=== PATIENT | male | born 1965 | race African-American/Black ===

== ENCOUNTER 2020-02-29 12:28 | Emergency (ER) | payer SELFPAY ==
--- NOTE | ~2020-02-29 | XR_ITS ---
XR chest 2V 02/29/2020 13:10 Indication: Productive cough for 3 days Procedure: 2 view chest Comparison: No prior studies for comparison. Findings: Right basilar airspace disease. Borderline heart size. No pleural effusion, edema or pneumo thorax. Impression: 1: Right basilar airspace disease may represent atelectasis or developing pneumonia. Reviewed, dictated and finalized at location A. Impression: 1: Right basilar airspace disease may represent atelectasis or developing pneum onia.
[2020-02-29 12:42] VITALS: BP 151/97; PULSE 94; RESP 16; TEMP 37.3; O2SAT 98
--- NOTE | 2020-02-29 12:57 | ED.URI ---
HPI - URI/Sore Throat General Chief Complaint: Upper Respiratory Infection Stated Complaint: diarrhea/cough Time Seen by Provider: 02/29/20 12:45 Source: patient and RN notes reviewed Mode of arrival: ambulatory Limitations: no limitations History of Present Illness HPI Narrative: Patient presents today with a 3-day history of productive cough with green sputum, decreased appetite, fatigue. He also reports 3 episodes of diarrhea over the past 3 days. Denies blood or mucus in the stool. Denies shortness of breath, abdominal pain, or fever. He does report some rhinorrhea that started today, but only lasted a short period of time. He has been taking Robitussin with mild relief. MD elicited complaint: cough Related Data Home Medications Medication Instructions Recorded Confirmed amlodipine [Norvasc] 10 mg PO DAILY 02/29/20 02/29/20 atorvastatin [Lipitor] 80 mg PO DAILY 02/29/20 02/29/20 doxazosin [Cardura] 4 mg PO BID 02/29/20 02/29/20 gabapentin [Neurontin] 300 mg PO TID 02/29/20 02/29/20 losartan [Cozaar] 100 mg PO DAILY 02/29/20 02/29/20 metformin [Glucophage XR] 750 mg PO BID 02/29/20 02/29/20 Allergies Allergy/AdvReac Type Severity Reaction Status Date / Time No Known Allergies Allergy Verified 02/29/20 12:49 Review of Systems Review of Systems: Narrative: CONSTITUTIONAL: Denies body aches, fever, chills, or sweats.+ Fatigue, decreased appetite EYES: Denies visual changes, redness, or discharge. ENT: Denies congestion, sore throat, or otalgia.+ Rhinorrhea CARDIOVASCULAR: Denies chest pain, palpitations, or edema. RESPIRATORY: Denies dyspnea.+ Cough GASTROINTESTINAL: Denies abdominal pain, nausea, vomiting. + Diarrhea GENITOURINARY: Denies dysuria or hematuria. SKIN: Denies rash, itching, or wounds. MUSCULOSKELETAL: Denies back pain, joint pain, or myalgia. NEUROLOGIC: Denies headache, numbness, tingling, or weakness. PSYCH: Denies depression or anxiety. [facility] Past Medical History Medical History (Updated 02/29/20 @ 13:29 by Anuradha Kamara, MEDICAL OFFICE ASSISTANT, ) Diabetes Hypercholesterolemia Hypertension Social History Social History (Updated 02/29/20 @ 12:59 by Anuradha Kamara, [facility], ) Smoking status: Never smoker Gender identity (if verbalized by the patient): Male Comments At time of signature, I have reviewed and agree with nursing past medical, surgical, social and family history unless otherwise noted. Please see nursing chart for further information. There is no relevant family history pertinent to the presenting complaint Exam Narrative: Exam Narrative: GENERAL: Well-appearing, well-nourished, and in no acute distress. HEAD: Normocephalic, atraumatic. EYES: EOMI. No redness or drainage. Conjunctivae normal. ENT: Mucous membranes pink and moist. Nares mildly congested. No rhinorrhea. TMs normal bilaterally. Throat normal. Uvula midline. NECK: Normal AROM. Supple. No lymphadenopathy. CHEST: No respiratory distress. Slightly diminished in the right lower lobe. Deep breath elicits coughing episodes. HEART: Regular rate and rhythm. No murmur appreciated. Normal peripheral pulses. ABDOMEN: Soft, nontender, nondistended, normal active bowel sounds. MUSCULOSKELETAL: No bony tenderness. EXTREMITIES: Normal range of motion. No edema. SKIN: Warm, dry, no rash. Capillary refill normal. Normal skin turgor. NEURO: No focal deficits. Alert and oriented x3. Gait steady. PSYCH: Normal affect. No signs of depression or anxiety. Course Vital Signs Vital signs: Vital Signs Temperature 99.2 F 02/29/20 12:42 Pulse Rate 94 02/29/20 12:42 Respiratory Rate 16 02/29/20 12:42 Blood Pressure 151/97 H 02/29/20 12:42 Pulse Oximetry 98 02/29/20 12:42 Temperature 99.2 F 02/29/20 12:42 Pulse Rate 94 02/29/20 12:42 Respiratory Rate 16 02/29/20 12:42 Blood Pressure 151/97 H 02/29/20 12:42 Pulse Oximetry 98 02/29/20 12:42 Reviewed. Pt has been instructed to follow up wit
== END 2020-02-29 13:33 | disposition home or self-care (01) ==
PROVIDERS: Emergency Provider Nurse Practitioner; PCP Physician Assistant
DX: J18.9 Pneumonia, unspecified organism (principal); E11.9 Type 2 diabetes mellitus without complications; E78.00 Pure hypercholesterolemia, unspecified; I10 Essential (primary) hypertension; Z79.84 Long term (current) use of oral hypoglycemic drugs
CPT/HCPCS: 71046; 99213; G0463

== ENCOUNTER 2021-04-24 11:56 | Emergency (ER) | payer OTHER, SELFPAY ==
[2021-04-24 12:09] VITALS: BP 188/91; PULSE 73; RESP 16; TEMP 36.1; O2SAT 100
--- NOTE | 2021-04-24 12:22 | ED.BACK ---
HPI - Back Pain/Injury General Chief Complaint: Back Pain/Injury Stated Complaint: back pain Source: patient and RN notes reviewed Limitations: no limitations History of Present Illness HPI Narrative: The patient, who is a manual farm laborer, presents with recurrent back pain. Patient states he had a prior history of right-sided low back pain, that was treated with physical therapy after scan several years ago. He complains of gradual onset of similar pain 5 days ago after digging a ditch. Symptoms are mild, radiate distally on the posterior leg and to upper foot. No fever, abdominal pain, numbness/weakness, bowel?bladder symptoms, hematuria. Blood pressure is elevated and patient comments he has not taken his amlodipine, as he is out of the medication Advised to go to higher-level care facility to higher level testing if not improved , because for early diagnosis of serious problems [kidney stone, vascular, atypical appendicitis, etc], clear specific symptoms do not develope until later. Do not feel it is an acute GI, or event has it is similar to prior episode, and reproducible tender externally. Patient confirms he has had physician visits and labs this year and will follow up with PMD Related Data Home Medications Medication Instructions Recorded Confirmed amlodipine [Norvasc] 10 mg PO DAILY 02/29/20 02/29/20 atorvastatin [Lipitor] 80 mg PO DAILY 02/29/20 02/29/20 doxazosin [Cardura] 4 mg PO BID 02/29/20 02/29/20 metformin [Glucophage XR] 750 mg PO BID 02/29/20 02/29/20 aspirin PO 04/24/21 hydrochlorothiazide 04/24/21 Allergies Allergy/AdvReac Type Severity Reaction Status Date / Time No Known Allergies Allergy Verified 02/29/20 12:49 Review of Systems Review of Systems: Narrative: General/Constitutional: No weight loss,fever Eyes: N0: Redness,discharge Ears/Nose/Throat: No: Epistaxis,ear discharge Respiratory: Denies: Hemoptysis Gastrointestinal: No Vomiting, Bleeding-rectal Skin: No Lumps, eruption Neurologic: No Focal Weakness,Sz Hematologic: Denies: Petechiae/Purpura Psychiatric: No: Suicida ideationl All Other Systems: Reviewed and Negative [facility] Past Medical History Medical History (Updated 04/24/21 @ 13:00 by Mendoza Madrigal MD) Diabetes Hypercholesterolemia Hypertension Social History Social History (Updated 02/29/20 @ 12:59 by Anuradha Kamara, [facility], ) Smoking status: Never smoker Gender identity (if verbalized by the patient): Male Comments At time of signature, agree with nursing past medical, surgical, social and family history. There is no relevant family history pertinent to the presenting complaint Exam Narrative: Exam Narrative: General Appearance: Well appearing, Well nourished, Conjunctiva clear Ears: External ear normal Nose: Normal nose Mouth/Throat: Normal appearing, Normal lips, Supple Respiratory: Airway patent Abdomen: Soft, NT no masses, good pulses Musculoskeletal: Normal strength -no footdrop, 5/5 : EH L-FHL, gastroc-AT, no saddle weakness Spine/Back: Paraspinal muscle tender -with mild decreased range of motion; right sciatic notch and posterior superior iliac crest Skin: Normal color Neurological: A&O x3, CN II-XII intact, Normal reflexes (symmetric, 2+ KJ, trace AJ) Psychiatric: Normal mood Course Vital Signs Vital signs: Vital Signs Temperature 96.9 F L 04/24/21 12:09 Pulse Rate 73 04/24/21 12:09 Respiratory Rate 16 04/24/21 12:09 Blood Pressure 188/91 H 04/24/21 12:09 Pulse Oximetry 100 04/24/21 12:09 Temperature 96.9 F L 04/24/21 12:09 Pulse Rate 73 04/24/21 12:09 Respiratory Rate 16 04/24/21 12:09 Blood Pressure 188/91 H 04/24/21 12:09 Pulse Oximetry 100 04/24/21 12:09 Discharge Plan Discharge Clinical Impression: Labile hypertension Sciatica Qualifiers: Laterality: right Qualified Code(s): M54.31 - Sciatica, right side Patient Disposition: Home, Self-Care Condition: Stable
== END 2021-04-24 12:38 | disposition home or self-care (01) ==
PROVIDERS: Emergency Provider Emergency Medicine
DX: M54.31 Sciatica, right side (principal); R03.0 Elevated blood-pressure reading, without diagnosis of hypertension; E11.9 Type 2 diabetes mellitus without complications; E78.00 Pure hypercholesterolemia, unspecified
CPT/HCPCS: 99213; G0463

== ENCOUNTER 2021-09-02 14:50 | Emergency (ER) | payer OTHER, SELFPAY ==
[2021-09-02 15:00] VITALS: BP 161/104; PULSE 83; RESP 16; TEMP 37.1; O2SAT 99
[2021-09-02 15:05] VITALS: BP 161/104; PULSE 83; RESP 16; TEMP 37.1; O2SAT 99
--- NOTE | 2021-09-02 16:00 | ED.GENADULT ---
HPI - General Adult General Chief complaint: Unspecified Stated complaint: Hicups Time Seen by Provider: 09/02/21 15:52 Source: patient and RN notes reviewed Mode of arrival: ambulatory Limitations: no limitations History of Present Illness HPI narrative: Patient presents today with a 2-day history of hiccups. He has tried multiple home remedies to include eating hawa, drinking cold water and herbal tea, and eating hot foods. He denies any history of GERD but does say he has a burning in his throat currently. Upon exam, he states he has not had any hiccups for 15 minutes. complaint: Hiccups Related Data Home Medications Medication Instructions Recorded Confirmed amlodipine [Norvasc] 10 mg PO DAILY 02/29/20 09/02/21 atorvastatin [Lipitor] 80 mg PO DAILY 02/29/20 09/02/21 doxazosin [Cardura] 4 mg PO BID 02/29/20 09/02/21 metformin [Glucophage XR] 750 mg PO BID 02/29/20 09/02/21 aspirin 81 mg PO DAILY 04/24/21 09/02/21 hydrochlorothiazide 50 mg PO DAILY 04/24/21 09/02/21 cetirizine 10 mg PO DAILY 09/02/21 09/02/21 Allergies Allergy/AdvReac Type Severity Reaction Status Date / Time No Known Allergies Allergy Verified 09/02/21 14:56 Review of Systems Review of Systems: CONSTITUTIONAL: Denies body aches, fever, chills, or sweats. EYES: Denies visual changes, redness, or discharge. ENT: Denies rhinorrhea, congestion, sore throat, or otalgia. CARDIOVASCULAR: Denies chest pain, palpitations, or edema. RESPIRATORY: Denies cough or dyspnea. GASTROINTESTINAL: Denies abdominal pain, nausea, vomiting, or diarrhea.+ Hiccups GENITOURINARY: Denies dysuria or hematuria. SKIN: Denies rash, itching, or wounds. MUSCULOSKELETAL: Denies back pain, joint pain, or myalgia. NEUROLOGIC: Denies headache, numbness, tingling, or weakness. PSYCH: Denies depression or anxiety. [facility] Past Medical History Medical History Diabetes Hypercholesterolemia Hypertension Social History Social History Smoking status: Never smoker Gender identity (if verbalized by the patient): Male Comments At time of signature, I have reviewed and agree with nursing past medical, surgical, social and family history unless otherwise noted. Please see nursing chart for further information. There is no relevant family history pertinent to the presenting complaint Exam Narrative: GENERAL: Well-appearing, well-nourished, and in no acute distress. HEAD: Normocephalic, atraumatic. EYES: EOMI. No redness or drainage. Conjunctivae normal. ENT: Mucous membranes pink and moist. NECK: Normal AROM. Supple. No lymphadenopathy. CHEST: No respiratory distress. EXTREMITIES: Normal range of motion. No edema. SKIN: Warm, dry, no rash. Capillary refill normal. Normal skin turgor. NEURO: No focal deficits. Alert and oriented x3. Gait steady. PSYCH: Normal affect. No signs of depression or anxiety. Course Vital Signs Vital signs: Vital Signs Temperature 98.8 F 09/02/21 15:00 Pulse Rate 83 09/02/21 15:00 Respiratory Rate 16 09/02/21 15:00 Blood Pressure 161/104 H 09/02/21 15:00 Pulse Oximetry 99 09/02/21 15:00 Temperature 98.8 F 09/02/21 15:05 Pulse Rate 83 09/02/21 15:05 Respiratory Rate 16 09/02/21 15:05 Blood Pressure 161/104 H 09/02/21 15:05 Pulse Oximetry 99 09/02/21 15:05 Reviewed. Pt has been instructed to follow up with his PCP regarding his elevated blood pressure today. Medical Decision Making Differential Diagnosis Differential Diagnosis: Hiccups Vital Signs Vital Signs: Vital Signs Temperature 98.8 F 09/02/21 15:00 Pulse Rate 83 09/02/21 15:00 Respiratory Rate 16 09/02/21 15:00 Blood Pressure 161/104 H 09/02/21 15:00 Pulse Oximetry 99 09/02/21 15:00 Temperature 98.8 F 09/02/21 15:05 Pulse Rate 83 09/02/21 15:05 Respiratory Rate 16 09/02/21 15:05 Blo
== END 2021-09-02 16:10 | disposition home or self-care (01) ==
PROVIDERS: Emergency Provider Nurse Practitioner
DX: R06.6 Hiccough (principal); E11.9 Type 2 diabetes mellitus without complications; E78.00 Pure hypercholesterolemia, unspecified; I10 Essential (primary) hypertension
CPT/HCPCS: 99213; G0463

== ENCOUNTER 2022-06-03 16:53 | Emergency (ER) | payer OTHER, SELFPAY ==
[2022-06-03 17:00] VITALS: BP 153/95; PULSE 104; RESP 16; TEMP 36.5; O2SAT 100
--- NOTE | 2022-06-03 17:08 | ED.GENADULT ---
HPI - General Adult General Chief complaint: Nausea/Vomiting/Diarrhea Stated complaint: Dizzy, diarhea Time Seen by Provider: 06/03/22 17:08 Source: patient and RN notes reviewed Mode of arrival: ambulatory Limitations: no limitations History of Present Illness HPI narrative: 57-year-old male presents to the [facility] with diarrhea, blurry vision, dizziness since changing his metformin dose a week ago. States that he tried calling his primary care provider, was told to go to the [facility] or emergency room. Patient appears nontoxic. Patient states that his sugars have been running in the 300s and unable to get him down. Patient also states that his blood pressure has been all over the place. States that he was driving here when his vision became extremely blurry Related Data Home Medications Medication Instructions Recorded Confirmed amlodipine 10 mg tablet (Norvasc) 10 mg PO DAILY 02/29/20 06/03/22 atorvastatin 80 mg tablet (Lipitor) 80 mg PO DAILY 02/29/20 06/03/22 doxazosin 4 mg tablet (Cardura) 4 mg PO BID 02/29/20 06/03/22 metformin 750 mg tablet,extended 750 mg PO BID 02/29/20 06/03/22 release 24 hr (Glucophage XR) aspirin 81 mg tablet 81 mg PO DAILY 04/24/21 06/03/22 hydrochlorothiazide 50 mg PO DAILY 04/24/21 06/03/22 cetirizine 10 mg tablet 10 mg PO DAILY 09/02/21 06/03/22 Allergies Allergy/AdvReac Type Severity Reaction Status Date / Time No Known Allergies Allergy Verified 06/03/22 16:54 Review of Systems Review of Systems: All systems reviewed & are unremarkable except as noted in HPI and below Constitutional: Constitutional: Reports no additional constitutional complaints, Denies chills and Denies fever(s) Eyes: Eyes: Reports no additional eye complaints ENT: Reports system reviewed and no additional complaints, except as documented Cardiovascular: Cardiovascular: Reports no additional cardiovascular complaints Respiratory: Respiratory: Reports no additional respiratory complaints Gastrointestinal: Gastrointestinal: Reports as per HPI and Reports diarrhea Musculoskeletal: Musculoskeletal: Reports no additional musculoskeletal complaints Integumentary/Breasts: Skin/Breast: Reports system reviewed and no additional complaints, except as docu Neurologic: Reports as per HPI, Reports confusion, Reports dizziness (Blurry vision), Denies syncope and Reports weakness Psychiatric: Psychiatric: Reports no additional psychiatric complaints Allergic/Immunologic: Allergic/Immunologic: Reports no additional allergic/immunologic complaints [facility] Past Medical History Medical History Diabetes Hypercholesterolemia Hypertension Social History Social History Smoking status: Never smoker Gender identity (if verbalized by the patient): Male Comments At the time of my signature, I reviewed and agree with the nursing past medical, surgical, social, and family history. There is no relevant family history pertinent to the patient complaint. Exam Const: General: healthy appearing, no acute distress and alert Nutritional Appearance: well nourished Orientation/consciousness: patient oriented x3 Limitations: no limitations HENMT: Head: normal to inspection Ears: external ears normal Eyes: General: appearance normal, both eyes and all related structures Conjunctivae: conjunctivae normal Pupils: Equal, round and reactive pupils present Neck: Neck: normal visual inspection, no lymphadenopathy and no meningeal signs Chest: Chest palpation & inspection: normal inspection of the chest Resp: Effort & Inspection: normal respiratory effort and no use of accessory muscles Auscultation: clear to auscultation bilaterally, no crackles, no rales, no rhonchi and no wheezes Cardio: Rate: regular rate Rhythm: regular rhythm GI: GI Palp: Yes Soft to palpation and No Tenderness to palpation present (
[2022-06-03 17:23] LABS: Glucose Point of Care 318 mg/dl (65-105)
--- NOTE | 2022-06-03 17:52 | ECG_ITS ---
Measurements Intervals [place] Rate: 97 P: 63 SC: 207 QRS: -3 QRSD: 87 T: 13 QT: 318 QTc: 405 Interpretive Statements SINUS RHYTHM POSSIBLE LEFT ATRIAL ENLARGEMENT [-0.1mV P WAVE IN V1/V2] NONSPECIFIC T-WAVE ABNORMALITY NO PREVIOUS ECG AVAILABLE FOR COMPARISON Electronically Signed On 06-04-2022 18:06:51 CDT by Josie Bennett M.D.
== END 2022-06-03 17:26 | disposition short-term general hospital (02) ==
PROVIDERS: Emergency Provider Nurse Practitioner
DX: E11.65 Type 2 diabetes mellitus with hyperglycemia (principal); R42 Dizziness and giddiness; H53.8 Other visual disturbances; E78.00 Pure hypercholesterolemia, unspecified; I10 Essential (primary) hypertension
CPT/HCPCS: 82948; 93005; 99215; G0463

== ENCOUNTER 2023-12-23 10:45 | Emergency (ER) | payer OTHER, SELFPAY ==
[2023-12-23 11:02] VITALS: BP 170/116; PULSE 98; RESP 16; TEMP 37.2; O2SAT 97
--- NOTE | 2023-12-23 11:37 | ED.GENADULT ---
HPI - General Adult General Chief complaint: Back Pain/Injury Stated complaint: lower back pain,cough Source: patient, RN notes reviewed and old records reviewed Mode of arrival: ambulatory Limitations: no limitations History of Present Illness HPI narrative: 58 year old male presents to [facility] care with complaints of needing medication refills of all his medications has doctors appointment on the 04 of January states they wouldn't refill his medication till seen by doctor. Patient is diabetic and on medications for hypertension with blood pressure elevated today and blood sugar today in clinic per finger stick noted to be 263. Patient also reports that he has lower back pain for the past 10 days with no injury, has been taking Aleve for his pain, denies any difficulty with bowel or bladder function,denies any radiation of pain to his legs or any tingling or numbness. Patient also states complaints of cough and runny nose for the past 8 days, taking OTC cough medication HBP. Request tested for COVID, denies any known fevers. MD complaint: back pain,cough and runny nose and needs medication refills. Onset (ago): day(s) (10 days of back pain,8 days of cough and runny nose) Severity scale (1-10): 8 Quality: aching Exacerbating factors: other (positiion changes) Treatments prior to arrival: NSAID and other (cough medication HBP) Related Data Home Medications Medication Instructions Recorded Confirmed amlodipine 10 mg tablet (Norvasc) 10 mg PO DAILY 02/29/20 12/23/23 atorvastatin 80 mg tablet (Lipitor) 80 mg PO DAILY 02/29/20 12/23/23 doxazosin 4 mg tablet (Cardura) 4 mg PO BID 02/29/20 12/23/23 metformin 750 mg tablet,extended 750 mg PO BID 02/29/20 12/23/23 release 24 hr (Glucophage XR) aspirin 81 mg tablet 81 mg PO DAILY 04/24/21 12/23/23 hydrochlorothiazide 50 mg PO DAILY 04/24/21 12/23/23 Allergies Allergy/AdvReac Type Severity Reaction Status Date / Time No Known Allergies Allergy Verified 12/23/23 11:10 Review of Systems Review of Systems: CONSTITUTIONAL: Denies fever, chills, or sweats. EYES: Denies visual changes, redness, or discharge. ENT:Reports rhinorrhea, congestion, no sore throat, or otalgia. CARDIOVASCULAR: Denies chest pain, palpitations, or edema. RESPIRATORY: Reports cough denies any dyspnea. GASTROINTESTINAL: Denies abdominal pain, nausea, vomiting, or diarrhea. GENITOURINARY: Denies dysuria or hematuria. SKIN: Denies rash or itching. MUSCULOSKELETAL: Reports lumbar back pain, joint pain, or myalgia. NEUROLOGIC: Denies headache, numbness, or weakness. PSYCHIATRIC: Denies anxiety or depression. All systems reviewed & are unremarkable except as noted in HPI and below PMFSH Past Medical History Medical History Diabetes Hypercholesterolemia Hypertension Social History Social History Smoking status: Never smoker Gender identity (if verbalized by the patient): Male Comments At time of signature, agree with nursing past medical, surgical, social and family history. There is no relevant family history pertinent to the presenting complaint Exam Narrative: GENERAL: Well-appearing, well-nourished, and in no acute distress. HEAD: Normocephalic, atraumatic. EYES: PERRLA and EOMI. ENT: Nares clear, clear rhinorrhea no epistaxis. Mucous membranes moist.TM's normal, throat pink with no swelling. NECK: Supple.no lymphadenopathy CHEST: Clear to auscultation. No respiratory distress. cough,SAO2 97% on room air HEART: Regular rate and rhythm. No murmur heard. Normal peripheral pulses. ABDOMEN: Soft, nontender, nondistended, normal active bowel sounds. EXTREMITIES: Normal range of motion. No edema.Reports lower back pain with increased pain with position changes, denies any saddle paraesthesia, no difficulty with urination or bowel movement,No radiation of pain to legs, denies any tingling or numbne
[2023-12-23 11:51] LABS: Glucose Point of Care 263 mg/dl (65-105)
== END 2023-12-23 12:12 | disposition home or self-care (01) ==
PROVIDERS: Emergency Provider Registered Nurse
DX: S39.012A Strain of muscle, fascia and tendon of lower back, initial encounter (principal); X58.XXXA Exposure to other specified factors, initial encounter; J06.9 Acute upper respiratory infection, unspecified; Z76.0 Encounter for issue of repeat prescription; Z20.822 Contact with and (suspected) exposure to COVID-19; E11.9 Type 2 diabetes mellitus without complications; Z79.84 Long term (current) use of oral hypoglycemic drugs; E78.00 Pure hypercholesterolemia, unspecified; I10 Essential (primary) hypertension; Z79.82 Long term (current) use of aspirin
CPT/HCPCS: 82948; 87426; 99213; G0463

== ENCOUNTER 2025-07-30 09:43 | Emergency (ER) | payer SELFPAY ==
[2025-07-30 09:52] VITALS: BP 182/110; PULSE 105; RESP 20; TEMP 36.6; O2SAT 100
--- NOTE | 2025-07-30 10:21 | ED.SOB ---
HPI - SOB/Dyspnea General Chief Complaint: Upper Respiratory Infection Stated Complaint: Swollen legs and URI symptoms patient presents to the [facility] with complaints of elevated blood sugars, increasing shortness of breath even at rest, increasing lower leg swelling, cough, and fatigue. Patient noted these symptoms started about 3 weeks ago. Overall they are getting much worse. Patient does report seeing primary care physician 3 months ago did lab work and was started on a new medication losartan noted has been taking this medication. Denies any chest pain, dizziness, heart fluttering. Does not check blood pressures at home. Denies fever, chills, body aches. Also noted some abdominal bloating and decreased bowel movements without pain for the last few days. Related Data Home Medications ?Medication ?Instructions ?Recorded ?Confirmed ?Last Taken ?Type amlodipine 10 mg tablet (Norvasc) 10 mg PO DAILY 02/29/20 12/23/23 09/01/21 History 10 mg atorvastatin 80 mg tablet (Lipitor) 80 mg PO DAILY 02/29/20 12/23/23 09/01/21 History 80 mg doxazosin 4 mg tablet (Cardura) 4 mg PO BID 02/29/20 12/23/23 09/01/21 History 4 mg metformin 750 mg tablet,extended 750 mg PO BID 02/29/20 12/23/23 09/01/21 History release 24 hr (Glucophage XR) 750 mg aspirin 81 mg tablet 81 mg PO DAILY 04/24/21 12/23/23 09/01/21 History 81 mg hydrochlorothiazide 50 mg PO DAILY 04/24/21 12/23/23 09/01/21 History 50 mg Allergies Allergy/AdvReac Type Severity Reaction Status Date / Time No Known Allergies Allergy Verified 07/30/25 09:57 Review of Systems Constitutional: Constitutional: Reports as per HPI, Denies chills, Reports fatigue, Denies fever(s) and Denies weakness Eyes: Eyes: Reports no additional eye complaints ENT: Reports as per HPI, Denies nasal congestion and Denies sore throat Cardiovascular: Cardiovascular: Reports as per HPI, Denies chest pain, Denies rapid heart rate, Denies radiating jaw, neck or arm pain and Denies slow heart rate Respiratory: Respiratory: Reports as per HPI, Denies chest congestion, Reports cough, Reports dyspnea and Denies wheezing Gastrointestinal: Gastrointestinal: Reports as per HPI, Denies abdominal pain, Reports bloating, Denies diarrhea, Denies nausea and Denies vomiting Genitourinary: Genitourinary: Reports no additional male genitourinary complaints Musculoskeletal: Musculoskeletal: Reports as per HPI and Reports joint swelling Integumentary/Breasts: Skin/Breast: Reports as per HPI, Denies erythema, Denies rash and Denies skin ulcer Neurologic: Reports as per HPI, Denies headache(s), Denies numbness and Denies weakness Psychiatric: Psychiatric: Reports no additional psychiatric complaints Endocrine: Endocrine: Reports no additional endocrine complaints Hematologic/Lymphatic: Hematologic/Lymphatic: Reports no additional hematologic/lymphatic complaints Allergic/Immunologic: Allergic/Immunologic: Reports no additional allergic/immunologic complaints [facility] Past Medical History Medical History Diabetes Hypercholesterolemia Hypertension Social History Social History Smoking status: Never smoker Gender identity (if verbalized by the patient): Male Exam Const: General: healthy appearing and no acute distress Nutritional Appearance: well nourished Orientation/consciousness: patient oriented x3 Limitations: no limitations Neck: Neck: normal visual inspection and no lymphadenopathy Resp: Effort & Inspection: normal respiratory effort Auscultation: crackles (bases ) bilateral and diminished lung sounds Cardio: Rate: regular rate Rhythm: regular rhythm Heart sounds: no murmurs GI: Inspection: non-distended GI Palp: Yes Soft to palpation, No Tenderness to palpation present (GI), No Guarding due to palpation present (GI), No Rigid due to palpation and No Rebound tenderness present Auscultation: normal bowel sounds Skin: General skin exam: normal color Rashes: no rashes Wounds: no wounds Neuro: General: patient oriented x3 and moves all extremities Cranial nerves: Yes Nystagmus not present Speech: normal speech Gait exam (Neuro): Normal gait present Extrem: General: edema (2+ pitting- lower legs, ankles, feet ) bilateral Other: No erythema or wounds noted to bilateral lower legs Psych: Mental Status: mental status grossly normal Affect: normal affect Attitude: cooperative Course Course Level of Care: Express Care Visit Vital Signs Vital signs: Vital Signs Temperature 97.8 F 07/30/25 09:52 Pulse Rate 105 H 07/30/25 09:52 Respiratory Rate 20 07/30/25 09:52 Blood Pressure 182/110 H 07/30/25 09:52 Pulse Oximetry 100 07/30/25 09:52 Oxygen Delivery Room Air 07/30/25 09:52 Temperature 97.8 F 07/30/25 09:52 Pulse Rate 105 H 07/30/25 09:52 Respiratory Rate 20 07/30/25 09:52 Blood Pressure 182/110 H 07/30/25 09:52 Pulse Oximetry 100 07/30/25 09:52 Oxygen Delivery Room Air 07/30/25 09:52 Transfer Transfered to: [facility] Transportation: Other ( private vehicle) Transfer rationale: concern for CHF exacerbation Accepting physician: Dr. Guerrero Transfer comments: report called to Yvonne PRINGLE MDM - SOB/Dyspnea MDM Narrative Medical decision making narrative: patient overall symptoms noted given the symptoms and overall assessment patient should be evaluated in the emergency room where lab work and further evaluation is available. Patient would like to go by private vehicle to [facility]. Educated patient and benefits of driving by private vehicle. Report called to fellow [facility] Emergency Room to Yvon[facility] PRINGLE for Dr. Guerrero. Differential Diagnosis Differential diagnosis: Likely acute exacerbation of chronic obstructive airways disease, congestive heart failure, community acquired pneumonia, asthma with exacerbation and pulmonary embolism Medical Records Attestation: I reviewed the patient's medical records. Discharge Plan Discharge Clinical Impression: Increasing shortness of breath, Localized swelling of both lower legs, Cough Patient Disposition: Acute Care Hospital Condition: Guarded Prognosis Patient Language: Taiwanese Prescriptions: No Action atorvastatin [Lipitor] 80 mg Tablet 80 mg PO DAILY amlodipine [Norvasc] 10 mg Tablet 10 mg PO DAILY Patient Comments: stated is out of med. doxazosin [Cardura] 4 mg Tablet 4 mg PO BID metformin [Glucophage XR] 750 mg Tablet Extended Release 24 Hr 750 mg PO BID amlodipine 10 mg tablet 10 mg PO DAILY Qty: 30 0RF atorvastatin 80 mg tablet 80 mg PO DAILY Qty: 20 0RF doxazosin 4 mg tablet 4 mg PO BID Qty: 60 0RF hydrochlorothiazide 50 mg tablet 50 mg PO DAILY Qty: 30 0RF metformin 750 mg tablet extended release 24 hr 750 mg PO BID Qty: 60 0RF cyclobenzaprine 10 mg tablet 10 mg PO TID PRN (Reason: muscle spasm) Qty: 14 0RF Rx Instructions: can not take if driving or operating machinery aspirin 81 mg Tablet 81 mg PO DAILY hydrochlorothiazide 50 mg PO DAILY Follow-up/Referrals: UNKNOWN,DOCTOR [Primary Care Provider] Time of Disposition: 10:22
== END 2025-07-30 10:21 | disposition short-term general hospital (02) ==
PROVIDERS: Emergency Provider Nurse Practitioner Family
DX: R06.02 Shortness of breath (principal); R22.43 Localized swelling, mass and lump, lower limb, bilateral; R05.9 Cough, unspecified; E11.9 Type 2 diabetes mellitus without complications; Z79.84 Long term (current) use of oral hypoglycemic drugs; I10 Essential (primary) hypertension; E78.00 Pure hypercholesterolemia, unspecified; Z79.82 Long term (current) use of aspirin
CPT/HCPCS: 99212; G0463